=== PATIENT | female | born 1960 | race Caucasian/White ===

== ENCOUNTER 2020-10-15 13:55 | Outpatient (CLI) | payer BC, SELFPAY ==
--- NOTE | ~2020-10-15 | XR_ITS ---
XR sacroiliac joints min 3V DATE: 10/15/2020 14:21 INDICATION: Back pain TECHNIQUE: AP and bilateral oblique views COMPARISON: 10/15/2020 lumbar spine FINDINGS: Status post vertebroplasty at compression fractures of L3 and L5 vertebral bodies. There is mild degenerative change of the sacroiliac joints. No fracture or dislocation, erosive horn e or ankylosis at the sacroiliac joints. IMPRESSION: Mild degenerative change at the sacroiliac joints Status post vertebroplasty at L3 and L5 compression fractures Reviewed, dictated and finalized at [facility]. Reviewed, dictated and finalized at [facility].
--- NOTE | ~2020-10-15 | XR_ITS ---
XR lumbar spine min 4V DATE: 10/15/2020 14:22 INDICATION: Spondylosis TECHNIQUE: AP, lateral, bilateral oblique and coned lateral lumbosacral views COMPARISON: None FINDINGS: Compression fracture deformities and vertebroplasty are noted at L3 and L5. No other fractu re or bone destruction is evident. The lumbar pedicles appear intact. No spondylolysis. Grade 1 anter olisthesis at L4-5 due to degenerative change at the apophyseal joints. Osteopenia. Status post cholecystectomy. 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 IMPRESSION: Osteopenia Compression fractures and vertebroplasty at L3 and L5 Degenerative change at the apophyseal joints of the lower lumbar and lumbosacra l area with associated grade 1 anterolisthesis at L4-5
== END 2020-10-15 13:56 | disposition home or self-care (01) ==
PROVIDERS: Visit Provider Internal Medicine
DX: M47.896 Other spondylosis, lumbar region (principal); M53.3 Sacrococcygeal disorders, not elsewhere classified; M85.88 Other specified disorders of bone density and structure, other site
CPT/HCPCS: 72110; 72202